=== PATIENT | male | born 1980 | race Caucasian/White ===

== ENCOUNTER → 2022-03-14 | Outpatient (CLI) | payer OTHER ==
[2022-03-15 02:06] LABS: RUBELLA AB IGG-REFLAB 2.69 index (Immune >0.99); RUBEOLA (MEASLES) IGG >300.0 AU/mL (Immune >16.4)
== END | disposition home or self-care (01) ==
LOC: LABMN 10:36
PROVIDERS: ATTEND Internal Medicine
DX: Z02.1 Encounter for pre-employment examination (principal)
CPT/HCPCS: 86706; 86735; 86762; 86765; 86787

== ENCOUNTER 2022-10-27 07:04 | Emergency (ER) | payer BC, OTHER ==
[~2022-10-27] VITALS: Ht 193 cm; Wt 113.6 kg
[2022-10-27 07:06] VITALS: BP 138/80
[2022-10-27] MEDS ORDERED: LIDOCAINE 1% 10 ML VIAL SQ ONE (07:30)
[2022-10-27] MEDS ORDERED: TRAM-559 PO (08:13)
[2022-10-27] MEDS ORDERED: CEPH-558 PO (08:13)
[2022-10-27] MEDS ORDERED: SULF-261 PO (08:13)
== END 2022-10-27 08:26 | disposition home or self-care (01) ==
LOC: EMS 07:06
DX: L02.31 Cutaneous abscess of buttock (principal); E78.00 Pure hypercholesterolemia, unspecified
CPT/HCPCS: 10160; 99283; J3490; 10060

== ENCOUNTER 2022-11-16 01:15 | Emergency (ER) | payer OTHER ==
[~2022-11-16] VITALS: Ht 193 cm; Wt 109.1 kg
[~2022-11-16 01:15] MED LIST: CEPH-558 PO; SULF-261 PO; TRAM-559 PO
[2022-11-16 01:19] VITALS: BP 122/71; PULSE 119; RESP 20; TEMP 99.7
[2022-11-16 01:45] LABS: COVID AG,FIA SOURCE NASAL SWAB
[2022-11-16] MEDS ORDERED: LIDOCAINE/PF 1% 2 ML VIAL IM ONE (02:00)
[2022-11-16] MEDS ORDERED: CefTRIAXone SODIUM 1 GM/VIAL IM ONE (02:00)
[2022-11-16] MEDS ORDERED: ALBU18HF12 IH ×2 (02:06→02:27)
[2022-11-16] MEDS ORDERED: AZIT250T9 PO ×2 (02:06→02:27)
[2022-11-16] MEDS ORDERED: PRED-554 PO ×2 (02:06→02:27)
[2022-11-16 02:12] LABS: INFLUENZA TYPE A NEGATIVE FOR TYPE A (NEGATIVE); INFLUENZA TYPE B NEGATIVE FOR TYPE B (NEGATIVE)
[2022-11-16] MEDS ORDERED: AZITHROMYCIN 500 MG TABLET PO ONE (02:15)
== END 2022-11-16 02:30 | disposition home or self-care (01) ==
LOC: EMS 01:15
DX: J18.9 Pneumonia, unspecified organism (principal); E78.00 Pure hypercholesterolemia, unspecified; Z20.822 Contact with and (suspected) exposure to COVID-19
CPT/HCPCS: 99285; 71046; 87426; 87804; 93005; 96372; J0696; J3490; Q9967

== ENCOUNTER 2023-04-12 01:56 | Inpatient (IN) | payer OTHER ==
[~2023-04-12] VITALS: Ht 190.5 cm; Wt 112.2 kg
[~2023-04-12 01:56] MED LIST changes: +ALBU18HF12 IH; +AZIT250T9 PO; +PRED-554 PO
[2023-04-12] MEDS ORDERED: ROSU10TA72 PO (02:08)
[2023-04-12] MEDS ORDERED: 0.9% SODIUM CHLORIDE 10 ML SYRINGE IVP PRN (02:15)
[2023-04-12] MEDS ORDERED: SODIUM CHLORIDE 0.9% 3,200 ML IV ONE (02:15)
[2023-04-12] MEDS ORDERED: ACETAMINOPHEN 500 MG TABLET PO ONE (02:30)
[2023-04-12 02:31] LABS: BASOPHILS % (AUTO) 0.3 % (0.0-2.0); EOSINOPHILS % (AUTO) 0 % (1.0-6.0); HEMATOCRIT 41.8 % (41-53); HEMOGLOBIN 14.2 g/dL (13.5-17.5); LYMPHOCYTES # (AUTO) 0.5 K/uL (1.0-4.8); LYMPHOCYTES % (AUTO) 6.5 % (22.0-44.0); MEAN CORPUSCULAR HGB CONC 33.9 G/dL (31.0-37.0); MEAN CORPUSCULAR VOLUME 89 fL (80-100); MONOCYTES # (AUTO) 0.7 K/uL (0.1-1.0); MONOCYTES % (AUTO) 9.3 % (2.0-9.0); NEUTROPHILS # (AUTO) 6.5 K/uL (1.8-7.7); NEUTROPHILS % (AUTO) 83.9 % (40.0-70.0); PLATELET COUNT (AUTO) 181 K/uL (150-450); RED BLOOD CELL COUNT(AUTO) 4.72 MIL/uL (4.50-5.90); RED CELL DISTRIBUTION WIDTH 13.3 % (11.5-14.5); WHITE BLOOD COUNT (AUTO) 7.7 K/uL (4.5-11.0)
[2023-04-12 02:41] LABS: COVID AG,FIA SOURCE NASAL SWAB
[2023-04-12 02:41] LABS: CALCIUM, TOTAL 8.7 mg/dL (8.8-10.5); CREATININE 1.52 mg/dL (0.60-1.30); POTASSIUM 3.6 mmol/L (3.5-5.1)
[2023-04-12 02:43] LABS: INR 1.1 (0.9-1.1); PROTHROMBIN TIME 11.4 SEC (9.4-11.6)
[2023-04-12] MEDS ORDERED: CefTRIAXone 1 GM/DEXTROSE 50 ML IV ONE (02:45)
[2023-04-12] MEDS ORDERED: AZITHROMYCIN 500 MG/NS 250 ML IV ONE (02:45)
[2023-04-12 02:50] LABS: TROPONIN I-HIGH SENSITIVITY 7 ng/L (<76)
[2023-04-12 02:52] LABS: INFLUENZA TYPE A NEGATIVE FOR TYPE A (NEGATIVE); INFLUENZA TYPE B NEGATIVE FOR TYPE B (NEGATIVE); SARS-COV2 (COVID) ANTIGEN,FIA Negative (Negative)
[2023-04-12 02:56] LABS: ALBUMIN 3.9 g/dL (3.4-5.0); BILIRUBIN,TOTAL 0.3 mg/dL (0.1-1.0); TOTAL PROTEIN, SERUM 7.6 g/dL (6.4-8.2)
[2023-04-12] MEDS ORDERED: AZITHROMYCIN 500 MG/NS 250 ML IV SCH (03:45)
[2023-04-12] MEDS ORDERED: ONDANSETRON HCL 4 MG/2 ML VIAL IVP PRN (03:45)
[2023-04-12 05:25] LABS: APPEARANCE,URINE CLEAR (CLEAR); BILIRUBIN,URINE NEGATIVE (NEGATIVE); COLOR,URINE LIGHT YELLOW (YELLOW); GLUCOSE, URINE (UA) NEGATIVE (NEGATIVE); KETONES,URINE NEGATIVE (NEGATIVE); LEUKOCYTE ESTERASE ,URINE NEGATIVE (NEGATIVE); NITRATE,URINE NEGATIVE (NEGATIVE); OCCULT BLOOD,URINE LARGE (NEGATIVE); PROTEIN,URINE NEGATIVE (NEGATIVE); SPECIFIC GRAVITIY, URINE 1.013 (1.003-1.030); UROBILINOGEN,URINE <=1.0 mg/dL (<=1.0)
[2023-04-12 05:35] LABS: BACTERIA,URINE Few /HPF (None Seen); SQUAMOUS EPITHELIAL CELL,UR Few /LPF (None Seen); WBC,URINE 0-2 /HPF (0-5)
[2023-04-12] MEDS: SODIUM CHLORIDE 0.9% 1,000 ML IV SCH ×2 (05:42→15:04)
[2023-04-12] MEDS ORDERED: IBUPROFEN 600 MG TABLET PO ONE (06:00)
[2023-04-12] MEDS: HEPARIN SODIUM,PORCINE 5,000 UNITS/ML VIAL SQ SCH ×3 (07:05→23:29)
[2023-04-12] MEDS: DOCUSATE SODIUM 100 MG CAPSULE PO SCH ×2 (08:04→21:00)
[2023-04-12 08:45] VITALS: BP 119/66; PULSE 69; RESP 18; TEMP 98.1
[2023-04-12] MEDS: ROSUVASTATIN CALCIUM 10 MG TABLET PO SCH (10:47)
[2023-04-12 12:47] VITALS: BP 122/74; PULSE 66; RESP 18; TEMP 98.2
[2023-04-12] MEDS ORDERED: INFLUENZA VIRUS VACCINE QVS 2023-24 (6MO+)/PF 60 MCG/0.5 ML SYRINGE IM. ONE (15:00)
[2023-04-12 15:06] LABS: CREATININE,URINE RANDOM 38.6 mg/dL (30.0-125.0)
[2023-04-12] MEDS: ACETAMINOPHEN 325 MG TABLET PO PRN ×2 (15:09→23:52)
[2023-04-12 16:25] VITALS: BP 126/74; PULSE 73; RESP 18; TEMP 98.2
[2023-04-12 20:05] VITALS: BP 135/72; PULSE 73; RESP 19; TEMP 98.4
[2023-04-12 20:38] LABS: PH,URINE DRUG SCREEN 6.5 (5.0-8.0)
[2023-04-12 20:45] LABS: AMPHET/METH SCREEN,URINE NEGATIVE (NEGATIVE); BARBITURATE SCREEN, URINE NEGATIVE (NEGATIVE); BENZODIAZEPINES SCREEN,URINE NEGATIVE (NEGATIVE); CANNABINOID SCREEN,URINE NEGATIVE (NEGATIVE); COCAINE SCREEN,URINE NEGATIVE (NEGATIVE); METHADONE SCREEN, URINE NEGATIVE (NEGATIVE); OPIATE SCREEN,URINE NEGATIVE (NEGATIVE); PHENCYCLIDINE SCREEN,URINE NEGATIVE (NEGATIVE)
[2023-04-12 20:50] LABS: ALCOHOL, URINE DRUG SCREEN NEGATIVE (NEGATIVE)
[2023-04-13 00:09] VITALS: BP 129/81; PULSE 72; RESP 17; TEMP 98.8
[2023-04-13] MEDS: CefTRIAXone 1 GM/DEXTROSE 50 ML IV SCH ×2 (04:19→14:33)
[2023-04-13] MEDS: SODIUM CHLORIDE 0.9% 1,000 ML IV SCH ×2 (04:27→08:38)
[2023-04-13] MEDS: AZITHROMYCIN 500 MG/NS 250 ML IV SCH (04:27)
[2023-04-13 04:50] VITALS: BP 122/74; PULSE 72; RESP 17; TEMP 98.5
[2023-04-13 06:29] LABS: BASOPHILS % (AUTO) 0.6 % (0.0-2.0); EOSINOPHILS % (AUTO) 1.3 % (1.0-6.0); HEMATOCRIT 38.5 % (41-53); HEMOGLOBIN 13.2 g/dL (13.5-17.5); LYMPHOCYTES # (AUTO) 1.7 K/uL (1.0-4.8); LYMPHOCYTES % (AUTO) 39.5 % (22.0-44.0); MEAN CORPUSCULAR HEMOGLOBIN 30.4 pg (26.0-34.0); MEAN CORPUSCULAR HGB CONC 34.3 G/dL (31.0-37.0); MEAN CORPUSCULAR VOLUME 89 fL (80-100); MONOCYTES # (AUTO) 0.5 K/uL (0.1-1.0); MONOCYTES % (AUTO) 11.6 % (2.0-9.0); PLATELET COUNT (AUTO) 168 K/uL (150-450); RED BLOOD CELL COUNT(AUTO) 4.35 MIL/uL (4.50-5.90); WHITE BLOOD COUNT (AUTO) 4.2 K/uL (4.5-11.0)
[2023-04-13 06:39] LABS: ANION GAP 11 mmol/L (8-16); CALCIUM, TOTAL 8.5 mg/dL (8.8-10.5); CARBON DIOXIDE 23 mmol/L (22-29); CHLORIDE 106 mmol/L (98-107); CREATININE 0.95 mg/dL (0.60-1.30); GLOMERULAR FILTR. RATE CALC > 60 mL/min (>60); GLUCOSE,RANDOM 157 mg/dL (70-110); POTASSIUM 3.6 mmol/L (3.5-5.1); SODIUM SERUM 140 mmol/L (136-145); UREA NITROGEN, BLOOD 11 mg/dL (7-18)
[2023-04-13 07:44] VITALS: BP 127/76; PULSE 71; RESP 18; TEMP 98.1
[2023-04-13] MEDS: HEPARIN SODIUM,PORCINE 5,000 UNITS/ML VIAL SQ SCH ×2 (08:00→16:00)
[2023-04-13] MEDS: ROSUVASTATIN CALCIUM 10 MG TABLET PO SCH (08:36)
[2023-04-13] MEDS: DOCUSATE SODIUM 100 MG CAPSULE PO SCH ×2 (08:37→20:18)
[2023-04-13] MEDS: ACETAMINOPHEN 325 MG TABLET PO PRN ×2 (10:56→20:24)
[2023-04-13 11:26] VITALS: BP 126/80; PULSE 83; RESP 18; TEMP 98.5
[2023-04-13 15:33] VITALS: BP 126/74; PULSE 70; RESP 17; TEMP 98.5
[2023-04-13] MEDS ORDERED: ZOLPIDEM TARTRATE 5 MG TABLET PO PRN (17:30)
[2023-04-13 20:20] VITALS: BP 115/77; PULSE 69; RESP 16; TEMP 98.4
[2023-04-14 00:44] VITALS: BP 122/73; PULSE 70; RESP 16; TEMP 98.5
[2023-04-14] MEDS: CefTRIAXone 1 GM/DEXTROSE 50 ML IV SCH (03:03)
[2023-04-14 04:00] VITALS: BP 127/72; PULSE 76; RESP 16; TEMP 98.3
[2023-04-14] MEDS: ACETAMINOPHEN 325 MG TABLET PO PRN (04:17)
[2023-04-14] MEDS: AZITHROMYCIN 500 MG/NS 250 ML IV SCH (04:18)
[2023-04-14 06:21] LABS: BASOPHILS % (AUTO) 0.6 % (0.0-2.0); EOSINOPHILS % (AUTO) 2.6 % (1.0-6.0); HEMOGLOBIN 13.7 g/dL (13.5-17.5); LYMPHOCYTES # (AUTO) 1.5 K/uL (1.0-4.8); LYMPHOCYTES % (AUTO) 37.5 % (22.0-44.0); MEAN CORPUSCULAR HEMOGLOBIN 30.2 pg (26.0-34.0); MEAN CORPUSCULAR HGB CONC 34.3 G/dL (31.0-37.0); MEAN CORPUSCULAR VOLUME 88 fL (80-100); MONOCYTES # (AUTO) 0.5 K/uL (0.1-1.0); MONOCYTES % (AUTO) 11.4 % (2.0-9.0); NEUTROPHILS # (AUTO) 1.9 K/uL (1.8-7.7); NEUTROPHILS % (AUTO) 47.9 % (40.0-70.0); PLATELET COUNT (AUTO) 204 K/uL (150-450); RED BLOOD CELL COUNT(AUTO) 4.55 MIL/uL (4.50-5.90); RED CELL DISTRIBUTION WIDTH 12.5 % (11.5-14.5)
[2023-04-14 07:16] VITALS: BP 116/73; PULSE 71; RESP 18; TEMP 98.2
[2023-04-14] MEDS: HEPARIN SODIUM,PORCINE 5,000 UNITS/ML VIAL SQ SCH ×2 (08:00)
[2023-04-14] MEDS: DOCUSATE SODIUM 100 MG CAPSULE PO SCH (08:55)
[2023-04-14] MEDS: ROSUVASTATIN CALCIUM 10 MG TABLET PO SCH (08:57)
[2023-04-14 09:08] LABS: ANION GAP 7 mmol/L (8-16); CALCIUM, TOTAL 8.1 mg/dL (8.8-10.5); CARBON DIOXIDE 25 mmol/L (22-29); CHLORIDE 104 mmol/L (98-107); CREATININE 1.06 mg/dL (0.60-1.30); GLOMERULAR FILTR. RATE CALC > 60 mL/min (>60); GLUCOSE,RANDOM 88 mg/dL (70-110); POTASSIUM 3.8 mmol/L (3.5-5.1); SODIUM SERUM 136 mmol/L (136-145); UREA NITROGEN, BLOOD 16 mg/dL (7-18)
[2023-04-14] MEDS ORDERED: AMOX1TAB16 PO (09:28)
[2023-04-14] MEDS ORDERED: DiphenhydrAMINE HCL 50 MG/ML VIAL IVP PRN (11:45)
[2023-04-14] MEDS ORDERED: ALPRAZolam 0.25 MG TABLET PO PRN (11:45)
[2023-04-14 12:27] VITALS: BP 120/68; PULSE 68; RESP 18; TEMP 98
[2023-04-15 17:06] LABS: LEGIONELLA PNEUMO AG URINE Negative (Negative); S PNEUMO SOURCE Urine; STREP PNEUMONIAE AG URINE Negative (Negative)
[2023-04-16 03:06] LABS: HIV 1-2 SCREEN 4TH GEN W/RFLX Non Reactive (Non Reactive)
== END 2023-04-14 13:30 | disposition home or self-care (01) | DRG 871 ==
LOC: EMS 01:57 → 5S 04:27
PROVIDERS: ADMIT Internal Medicine; ATTEND Internal Medicine
DX: A41.9 Sepsis, unspecified organism (principal); J18.9 Pneumonia, unspecified organism; N17.9 Acute kidney failure, unspecified; N39.0 Urinary tract infection, site not specified; R65.20 Severe sepsis without septic shock; Z20.822 Contact with and (suspected) exposure to COVID-19; E78.00 Pure hypercholesterolemia, unspecified; Z86.16 Personal history of COVID-19; Z87.891 Personal history of nicotine dependence; Z79.899 Other long term (current) drug therapy
CPT/HCPCS: 71045; 71250; 72192; 74150; 80048; 80053; 80307; 81001; 82570; 83036; 83605; 83735; 84145; 84300; 84484; 85025; 85610; 86738; 87040; 87389; 87449; 87804; 87899; 90686; 93005; 99285; J0456; J0696; J1644; J7030; 36415-L1; 36415-TC; G0008

== ENCOUNTER → 2023-07-19 | Outpatient (CLI) | payer OTHER ==
[~2023-07-19] MED LIST changes: -ALBU18HF12 IH; +AMOX1TAB16 PO; -AZIT250T9 PO; -CEPH-558 PO; -PRED-554 PO; +ROSU10TA72 PO; -SULF-261 PO; -TRAM-559 PO
[2023-07-20 20:11] LABS: BASOPHILS % (AUTO) 0.7 % (0.0-2.0); EOSINOPHILS % (AUTO) 1.1 % (1.0-6.0); HEMATOCRIT 44.2 % (41-53); HEMOGLOBIN 14.7 g/dL (13.5-17.5); LYMPHOCYTES # (AUTO) 3.4 K/uL (1.0-4.8); LYMPHOCYTES % (AUTO) 27.6 % (22.0-44.0); MEAN CORPUSCULAR HEMOGLOBIN 30.3 pg (26.0-34.0); MEAN CORPUSCULAR HGB CONC 33.4 G/dL (31.0-37.0); MEAN CORPUSCULAR VOLUME 91 fL (80-100); MONOCYTES # (AUTO) 1.4 K/uL (0.1-1.0); MONOCYTES % (AUTO) 11.8 % (2.0-9.0); NEUTROPHILS # (AUTO) 7.2 K/uL (1.8-7.7); NEUTROPHILS % (AUTO) 58.8 % (40.0-70.0); PLATELET COUNT (AUTO) 301 K/uL (150-450); RED BLOOD CELL COUNT(AUTO) 4.86 MIL/uL (4.50-5.90); RED CELL DISTRIBUTION WIDTH 13.7 % (11.5-14.5); WHITE BLOOD COUNT (AUTO) 12.2 K/uL (4.5-11.0)
== END | disposition home or self-care (01) ==
LOC: MSR 21:29
PROVIDERS: ATTEND Internal Medicine
DX: R07.9 Chest pain, unspecified (principal)
CPT/HCPCS: 85025; 87070

== ENCOUNTER 2024-07-20 05:21 | Emergency (ER) | payer OTHER ==
[~2024-07-20 05:21] MED LIST changes: +AMOX-457 PO; -AMOX1TAB16 PO
[2024-07-20] MEDS ORDERED: LIDO700A15 TP (05:29)
[2024-07-20] MEDS ORDERED: ACET-3385 PO (05:29)
[2024-07-20] MEDS ORDERED: IBUP-1492 PO (05:29)
[2024-07-20 05:34] VITALS: BP 148/88; PULSE 75; RESP 18; O2SAT 97
[2024-07-20] MEDS: KETOROLAC TROMETHAMINE 30 MG/ML VIAL IM ONE (05:40)
[2024-07-20] MEDS: LIDOCAINE 5% TRANSDERMAL PATCH TD ONE (05:41)
== END 2024-07-20 05:54 | disposition home or self-care (01) ==
LOC: EMS 05:22
DX: S39.012A Strain of muscle, fascia and tendon of lower back, initial encounter (principal); E78.00 Pure hypercholesterolemia, unspecified; Z79.899 Other long term (current) drug therapy; X50.0XXA Overexertion from strenuous movement or load, initial encounter; Y93.89 Activity, other specified; Y92.89 Other specified places as the place of occurrence of the external cause; Y99.0 Civilian activity done for income or pay
CPT/HCPCS: 99283; 96372; J1885

== ENCOUNTER 2024-11-25 00:54 | Emergency (ER) | payer OTHER ==
[~2024-11-25] VITALS: Ht 190.5 cm; Wt 109.1 kg
[~2024-11-25 00:54] MED LIST changes: +ACET-3385 PO; +IBUP-1492 PO; +LIDO-57 TP
[2024-11-25 00:58] VITALS: BP 126/71; PULSE 86; RESP 18; TEMP 98.2; O2SAT 99
[2024-11-25] MEDS: LIDOCAINE 1% 10 ML VIAL SQ ONE (01:09)
[2024-11-25] MEDS ORDERED: DOXY-354 PO (01:31)
[2024-11-25] MEDS ORDERED: CLIN-142 PO (01:33)
[2024-11-25] MEDS: DOXYCYCLINE HYCLATE 100 MG TABLET PO ONE (01:38)
== END 2024-11-25 01:40 | disposition home or self-care (01) ==
LOC: EMS 01:17
DX: L72.3 Sebaceous cyst (principal); E78.00 Pure hypercholesterolemia, unspecified; Z79.899 Other long term (current) drug therapy
CPT/HCPCS: 99283; 10060; J3490